=== PATIENT | female | born 1995 | race Two or more races ===

== ENCOUNTER 2019-06-10 22:44 | Outpatient (AMB) | payer OTHER, SELFPAY ==
--- NOTE | 2019-06-10 22:47 | UCVISIT ---
Intake Ht./Wt. Decline/Exclusions Patient Declined Height and Weight this visit: No PT Meets exclusion criteria: No Intake [place] Travel (last 14 days): No laura Travel (last 14 days): No Been in Contact w/Anyone Being Evaluated for Coronavirus (last 14 days): No Been in Close Contact w/Anyone Dx w/Coronavirus: No Zika Travel: No Been in contact w/anyone who has been Dx w/Zika Virus: No Been in contact w/anyone sick during travel outside country: No Patient >or equal to 18 years BMI outside of range 18.5-24.9: No Visit Reasons: UC Abdominal pain Triage Triage Allergy / Med Rec Allergies No Known Allergies Allergy (Unknown, Verified 06/10/19 22:48) Medication Reconciliation fluticasone 250 mcg-salmeterol 50 mcg/dose blistr powdr for inhalation 1 inh IH BID 06/10/19 [History Confirmed 06/10/19] ibuprofen 800 mg tablet 800 mg PO Q8H #30 tab 06/10/19 [Rx] levocetirizine 5 mg tablet 5 mg PO QDAY 06/10/19 [History Confirmed 06/10/19] Band Placement: Patient Identification MIHIR: 3-Urgent Arrival Mode of Arrival: Private Vehicle Method of Arrival: Ambulatory Accompanied By: Self Prehospital Treatment: tylenol 500mg at 1800 PCP or OBGYN visit in last 3 months: Yes Language Preferred Language: Icelandic Quality Assurance Representative Required: No Female History Now: No Last Menstrual Period: 06/09/19 : No Social History Alcohol / Drugs Hx Alcohol Use: No Hx Substance Use: No Safety Do You Feel Safe at Home: Yes Authorities Contacted: N/A [place] Fall Scale Special Populations Patient Comatose, Paralyzed or Immobile: No Patient Under the Age of 44 Years Old: No Assessment History of falling; immediate or within 3 months: No Secondary diagnosis: No Ambulatory aid: None IV Infusion: No Gait/Transferring: Normal/bedrest/immobile Mental Status: Oriented to own ability Score Score: 0 Risk Level/Action Risk Level: Low Risk Action: Good Basic Nursing Care Fall Star Level 1 Fall Star Level 1: Yes Patient Education Topic Education Topics: Plan of Care Teaching Recipient: Patient Readiness, Motivation to Learn: Active Methods: Verbal instruction Educ Materials Suggested by INFO Button/Rx Monograph Given: No Response: Verbalize Understanding Quality Assurance Representative Required: No Population Health PMH Hx Congestive Heart Failure: No Hx Diabetes Mellitus Type 1: No Hx Diabetes Mellitus Type 2: No Hx Renal Disease: No Hx Chronic Obstructive Pulmonary Disease (COPD): No Past Medical History Reviewed and agree with Nursing documentation.: Yes Past Medical History History Provided By: Medical Record and Patient Past Medical History: Yes Cardiac Medical History Hx Congestive Heart Failure: No Endocrine Medical History Hx Diabetes Mellitus Type 1: No Hx Diabetes Mellitus Type 2: No Genitourinary Medical History Hx Renal Disease: No Respiratory Medical History Hx Asthma: Yes Hx COPD: No HPI HPI Comments Details: 23-year-old female presents to urgent care with complaint of generalized lower abdominal pain. Patient states that she usually gets this when she is having menstrual cycle and she has been trying to follow-up with her PCP but because of the current pandemic she cannot see her regular physician. She states that she usually gets improvement with Tylenol. Patient states that she thinks she has endometriosis and she seen her doctor and they have done an ultrasound but they did not see any sign of endometriosis. Patient states that she would need to have a lap laparoscopic abdominal surgery so that they can see the endometriosis that she believes she has. Patient states that she has joined some support group online to help with this problem. Review of Systems (UC) Const Constitutional: Reports system reviewed and no additional complaints, except as documented Card Cardiovascular: Reports system reviewed and no additional complaints, except as documented Resp Respiratory: Reports system reviewed and no additional complaints, except as documented GI Gastrointestinal: Reports system reviewed and no additional complaints, except as documented and Reports cramping Genitourinary: Reports painful periods, Denies urinary hesitancy, Denies vaginal itching and Denies vaginal odor Psych Psychiatric: Reports anxiety Exam (UC) Limitations: no limitations General Appearance: alert, in no apparent distress, comfortable, cooperative, healthy appearing, well developed and well groomed Chest/Breast Exam: Present normal inspection SPO2%: 99% SPO2 type: Room Air Respiratory exam: Present normal lung sounds bilaterally and normal respiratory effort Cardiovascular exam: Present regular rate and regular rhythm Abdominal Exam: Present non-distended and hyperactive bowel sounds; Absent guarding, psoas sign, rigidity and tenderness at McBurney's Point Abdominal tenderness: Present suprapubic Bimanual exam: Present other (Deferred) Office Procedures UC Level of Care Nursing/Assessment/Reassessment Patient Status: Established Patient Nursing Assessment/Reassessment: Triage Asessment, Initial Vital Signs and RN General Assessments Coordination of Care: DC Instructions Simple 1-2 sets Established Patient Charge Established Patient Point Assignment: 40 Established Patient Point Assignment: EP Level 2 (40-75) Procedures: Pulse Ox reading: Yes Supplemental Info Patient declined to give urine because she says she is currently on her menstrual cycle Assessment and Plan Assessment & Plan (1) Abdominal pain: Qualifiers: Abdominal location: lower abdomen, unspecified Qualified Code(s): R10.30 - Lower abdominal pain, unspecified Plan - David Alvarez PA-C: Take medication as prescribed follow-up with your regular doctor in 3 to 5 days (2) Dysmenorrhea: Plan - David Alvarez PA-C: Take medication as prescribed follow-up with your regular doctor in 3 to 5 days Plan Details Other Medications: New: levocetirizine (Xyzal) 5 mg PO QDAY fluticasone propion-salmeterol 250-50 mcg/dose (Advair Diskus) 1 inh inhalation BID ibuprofen 800 mg PO Q8H 30 tabs 0RF Instructions: ED Cramping Menstrual ED Pelvic Pain UKO Additional Information PA/AUTO BODY REPAIR TECHNICIAN Supervising Physician: Matthew Diego DC Evaluation Discharge Information Seen, Treated and Released by Provider: No Left Prior to Receiving Discharge Instructions: No Transfer to Outside Facility: No Vital Signs Vitals Signs N/A: Yes Discharge Information Condition on Discharge: Stable Mode of Discharge: Ambulatory Discharge Transportation: Private Vehicle Instructions Quality Assurance Representative Required: No Discharge Instructions Given To: Patient Was Follow up Care Ordered: Yes Verbalizes Understanding of Discharge Instructions: Yes [facility] information card provided?: No Patient plan follow up w/PCP for [facility]: No
== END 2019-06-10 23:16 | disposition home or self-care (01) ==
PROVIDERS: PCP Registered Nurse; Referring Provider Registered Nurse; Visit Provider Physician Assistant
DX: I10 Essential (primary) hypertension (principal)

== ENCOUNTER 2024-05-17 07:30 | Day surgery (SDC) | payer OTHER, SELFPAY ==
--- NOTE | 2024-05-13 08:25 | ESHP_ITS ---
RE: SARWAT BRAY : 1995 DATE OF ADMISSION: 05/17/2024 HISTORY OF PRESENT ILLNESS: This is a 28-year-old 2, para 2 with abnormal uterine bleeding and Bartholin gland cyst, who has aggravating symptoms related to these conditions requiring surgical intervention. ALLERGIES: NO KNOWN DRUG ALLERGIES. MEDICATIONS: 1. Norethindrone contraceptive pills 0.35 mg one p.o. daily. 2. Omeprazole 20 mg one p.o. daily. SOCIAL HISTORY: She denies any alcohol, drug use, or smoking. PAST MEDICAL HISTORY: Gallstones, gastroesophageal reflux disease, obesity, endometrial polyp, and adenomyosis. OBSTETRIC HISTORY: 2012, 40-week normal vaginal delivery, 7 pound 8 ounce female, no complications. 2016, 40-week normal vaginal delivery, 6 pound 3 ounce female, no complications. PAST SURGICAL HISTORY: Diagnostic laparoscopy, hysteroscopy, and endometrial polypectomy in 05/2020 and 08/2019. REVIEW OF SYSTEMS: She denies any chest pain, palpitations, cough, fever, shortness of breath, or lower extremity pain. PHYSICAL EXAMINATION: VITAL SIGNS: Blood pressure is 122/74 mmHg, heart rate 88 bpm, respirations 18, temperature 98.8 degrees, weight 206 pounds. HEENT: Oropharynx and sclerae are clear. LUNGS: Clear to auscultation bilaterally. HEART: Regular rate and rhythm. ABDOMEN: Nontender. PELVIC: Exam deferred. EXTREMITIES: Nontender. SKIN: No gross rashes or lesion. NEUROLOGIC: No focal deficit. ASSESSMENT: Abnormal uterine bleeding, submucous leiomyoma, uterus; left Bartholin gland cyst. PLAN: Hysteroscopy, Myosure removal of submucous myoma, fractional dilatation and curettage, marsupialization of left Bartholin gland cyst. Informed consent was obtained. The patient was made aware of the risks, complications, alternatives, and benefits of the proposed procedure and she agrees. She is aware of the risk of injury to bowel or bladder, adjacent organs, pulmonary embolism, deep vein thrombosis, pelvic infection, reoperation, repair injury to internal organs, anesthesia complications, the possibility that a laparotomy needs to be performed to repair organs or control bleeding, the possibility that the procedure is not able to be completed due to severe adhesions or technical difficulties. She verbalized understanding and agrees to proceed with the procedure. DT: 06:57:00 TT: 08:23:00 Ref: [id number] - TID: [id number] MTDD
[2024-05-16 11:09] VITALS: BMI 35.6
[2024-05-16 11:44] LABS: Basophils % (Auto) 1 % (0-2.5); Eosinophils # (Auto) 0.1 Thou/mm3 (0.0-0.5); Eosinophils % (Auto) 1 % (0-10); Hemoglobin 14.3 g/dL (12.0-16.0); Immature Granulocytes % (Auto) 0 % (0-0); Immature Granulocytes Auto 0.02 Thou/mm3 (0.00-0.00); Lymphocytes # (Auto) 1.9 Thou/mm3 (1.0-4.8); Lymphocytes % (Auto) 33 % (10-50); Mean Corpuscular Hemoglobin 29.5 pg (25.0-35.0); Mean Corpuscular Volume 87 fL (80-100); Monocytes # (Auto) 0.5 Thou/mm3 (0.0-0.8); Monocytes % (Auto) 8 % (0-12); Neutrophils # (Auto) 3.4 Thou/mm3 (1.8-7.7); Neutrophils % (Auto) 57 % (37-80); Nucleated Red Blood Cell % 0 /100 WBC (0); Platelet Count 256 Thou/mm3 (140-440); RDW Standard Deviation 41.7 fL (36.4-46.3); Red Blood Count 4.85 Miln/mm3 (4.00-5.20); White Blood Count 5.9 Thou/mm3 (3.6-11.0)
[2024-05-16 11:58] LABS: INR 1.1 (0.9-1.3); Partial Thromboplastin Time 25.6 Seconds (22.0-36.0); Prothrombin Time 11.6 Seconds (9.0-12.2)
[2024-05-16 12:02] LABS: Alanine Aminotransferase 19 U/L (10-49); Albumin, Serum 4.3 gm/dL (3.5-5.0); Albumin/Globulin Ratio 1.5 (1.2-2.2); Alkaline Phosphatase 73 U/L (46-116); Anion Gap 8 (7-16); Aspartate Amino Transferase 19 U/L (0-34); BUN/Creatinine Ratio 11 Ratio (12-20); Beta HCG,Quantitative < 1 mIU/mL (<5.0); Bilirubin,Total 0.5 mg/dL (0.3-1.2); Blood Urea Nitrogen 9 mg/dL (9-23); Calcium 9.4 mg/dL (8.3-10.6); Calcium (Corrected) 9.4 mg/dL (8.5-10.1); Carbon Dioxide 26.3 mMol/L (20.0-31.0); Chloride 106 mMol/L (98-107); Creatinine (Component) 0.8 mg/dL (0.6-1.3); Estimated Creatinine Clearance 114.4 mL/min (>60); Globulin 2.8 gm/dL (2.3-3.5); Glucose 105 mg/dL (74-106); Osmolality,Calculated 278 (275-295); Potassium 3.7 mMol/L (3.4-5.1); Sodium 140 mMol/L (136-145); Total Protein 7.1 gm/dL (5.7-8.2); eGFR > 60 See Note
[2024-05-17] VITALS (7 sets, daily range): BP systolic 103–115; BP diastolic 58–81; PULSE 67–97; RESP 12–16; TEMP 36.4–37; O2SAT 98–100; BMI 35.4
--- NOTE | 2024-05-17 10:46 | SUR.PHASEI ---
1046 Patient arrived to recovery resting comfortably in [facility], on oxygen 8L via oxy mask with an oral airway-removed upon arrival, breathing unlabored, vital signs stable, denies pain, dressing intact to vaginal area; vaginal packing, and peripad, no bleeding noted, lung sounds clear upon auscultation, bilateral radial pulses present when palpated, report received from Radha SINGLETON/Dr. Shaw and Jasen HOFFMAN
--- NOTE | 2024-05-17 11:43 | SUR.PHASEII ---
1143 Patient meets discharge criteria from recovery, awake and alert, breathing unlabored, vital signs stable, denies pain, dressing intact; no bleeding noted, patient eating ice chips; tolerating well, denies nausea, patient able to dress herself into her clothing, discharge instructions given to patient and patients , with teach-back approach, both receptive of instructions, patient signed discharge instructions. Patient given all her belongings prior to discharge, transported via wheelchair and left in a private vehicle.
--- NOTE | 2024-05-17 11:45 | ESOP_ITS ---
RE: SARWAT BRAY : 1995 DATE OF OPERATION: 05/17/2024 PREOPERATIVE DIAGNOSES: 1. Abnormal uterine bleeding. 2. Submucous myoma, uterus. 3. Left Bartholin gland cyst. POSTOPERATIVE DIAGNOSES: 1. Abnormal uterine bleeding. 2. Left Bartholin gland cyst. 3. No submucous myoma or endometrial polyp seen. PROCEDURE PERFORMED: 1. Hysteroscopy. 2. MyoSure biopsies of endometrial cavity and fractional dilatation and curettage. 3. Marsupialization of left Bartholin gland cyst. SURGEON: Gabriele Nuñez DO UTILITY WORKER ROLLER SHOP: None. ANESTHESIA: General. ANESTHESIOLOGIST: Dr. Shaw. ESTIMATED BLOOD LOSS: 5 mL. COMPLICATIONS: None. COUNTS: Correct. PATHOLOGY: 1. Endometrial tissue. 2. Endocervical curettings. 3. Endometrial curettings. FINDINGS: 1. Normal-appearing uterine cavity anteverted, grossly normal-appearing cervix, no evidence of submucous myomas or polyps, no distortions or irregularities of the uterine cavity. 2. A 2.5 x 2.5 cm left Bartholin gland cyst containing hemorrhagic mucoid material. DESCRIPTION OF PROCEDURE: After appropriate informed consent was obtained, the patient was made aware of the risks, complications, alternatives, and benefits of the proposed procedure. She was taken to the operating room where she underwent induction of general anesthesia. She was placed in the dorsal lithotomy position. She was prepped and draped in the usual sterile fashion. Timeout was performed. Speculum was placed in the vagina. Single-tooth tenaculum was used to grasp the anterior lip of the cervix. The endocervix was dilated to accommodate the 5.5- mm Omni hysteroscope. The hysteroscope was then utilized to visualize the endocervix and uterine cavity and the above findings noted. Using the MyoSure Reach device, the endometrial cavity was sampled in all four quadrants and the endometrial tissue sent to Pathology. The endocervix was curetted with a Kevorkian curette and specimen sent to Pathology. The uterine cavity was curetted and specimen sent to Pathology. All instruments were removed from the cervix. There was no bleeding at the end of the procedure. Attention was then turned to the left Bartholin gland cyst. An incision was made in the vaginal mucosa inside the introitus on the left and through this 3 mm incision, the Bartholin gland cyst drained. The Bartholin gland wall was sutured to the vaginal mucosa using 2-0 Vicryl and quarter-inch gauze was placed into the gland trailing out through the opening and out the vagina. There was no bleeding at the end of the procedure. All instruments were removed from the vagina. She was reversed from general anesthesia in the supine position and transferred to the recovery room in stable condition. She tolerated the procedure well. Counts were correct. I discussed with the patient's , the nature of her condition, the intraoperative findings, and expectation for recovery. All questions answered. DT: 10:58:30 TT: 11:43:00 Ref: [id number] - TID: [id number]
== END 2024-05-17 11:43 | disposition home or self-care (01) ==
PROVIDERS: PCP Nurse Practitioner Family; Referring Provider Specialist; Visit Provider Specialist
PROC: (CPT 56440; principal; 2024-05-17 09:30)
DX: N75.0 Cyst of Bartholin's gland (principal); E66.9 Obesity, unspecified; Z68.35 Body mass index [BMI] 35.0-35.9, adult
CPT/HCPCS: 56440; 58558; 36415; 80053; 84702; 85025; 85610; 85730; 86850; 86900; 86901; A4217; A4649; J0131; J0690; J1100; J1885; J2250; J2371; J2405; J2704; J2765; J3010

== ENCOUNTER → 2024-12-05 | Outpatient (CLI) | payer OTHER, BC, SELFPAY ==
--- NOTE | 2024-12-05 16:39 | XR_ITS ---
Examination: Breast ultrasound, unilateral, right complete Date and time of exam: December 05, 2024, 1710 hours INDICATIONS: Palpable lump in the right axilla with pain noticed today Technique: Real-time merrill scale ultrasonographic imaging performed right breast including all 4 quadrants as well as nipple retroareolar and axillary region. Findings: No cystic or solid mass Dilated ducts retroareolar IMPRESSION: BI-RADS Category 2: Benign findings
== END | disposition home or self-care (01) ==
PROVIDERS: PCP Nurse Practitioner Family; Referring Provider Physician Assistant Medical; Visit Provider Physician Assistant Medical
DX: N64.4 Mastodynia (principal)
CPT/HCPCS: 76641